=== PATIENT | male | born 1950 | race Caucasian/White ===

== ENCOUNTER → 2018-06-20 | Outpatient (CLI) | payer OTHER ==
[~2018-06-20] VITALS: Ht 177.8 cm; Wt 88.5 kg
[~2018-06-20] MED LIST: ASPIRIN325 PO; CARVEDILOL12.5 MG PO; CELEBREX 200 M200 M1 PO; HUMALOG100 UNIT/1 SQ; LANTUS SUBQ; LIPITOR 20 MG T20 M1 PO; LOSARTAN-HCTZ1 EAC1 PO; PREVACID15 MG PO; PROTONIX 20 MG20 M1 PO; VALIUM5 MG PO; ZOCOR 10 MG TAB10 MG PO; ZOFRAN ODT4 MG PO
--- NOTE | ~2018-06-20 | OD ---
[facility] [place] [address] DELIVERY NOTE Name: TERE ARREGUIN JR Room #: REG [facility].#: [id number] Admission: 06/20/18 ������������������ Attend Phys: Ray Anaya MD Discharge: ������������������ Date of : 48 Report #: [id number] THIS REPORT FOR: //name// CC: Valerio Feldman MD [facility] Ray Anaya DATE OF SERVICE: 06/20/2018 CHIEF COMPLAINT: Low back pain. HISTORY OF PRESENT ILLNESS: The patient is a pleasant 67-year-old gentleman who is here today at the request of Dr. Valerio Marquis to discuss chronic back pain. He has had longstanding pain, but this current episode has been dated back to 07/2017. He says around that time, he began experiencing constant pain in his low back, which has been persistent. He then experienced a sharp pain that radiates through his hips and down into his calves. It is worse with bending, walking, twisting and turning. It is improved with sitting. As a result of this, he has become more and more debilitated and more sedentary. He scores his daily pain as an 8/10. He was seen by Dr. Evens Shelton. He received medial branch nerve block, followed by radiofrequency. These did not provide lasting relief and pain, in fact, was about the same at the conclusion of the laborious procedure. His pain now presents a bit more in a radicular type fashion with radiation down into the posterior aspect of legs. He does not exercise regularly. He has gained some weight. 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 He spends a lot of his time sitting, bending over table, working on his daily tasks. MEDICATIONS: Pantoprazole, losartan, Humalog, Lantus, atorvastatin, diazepam. He is followed by both Cardiology, Dr. Feldman and Dr. Marquis and treated for hypertension. He is on no blood thinners. ALLERGIES: HE REPORTS AN ALLERGY TO METHYLPREDNISOLONE, although we did not explore its reaction. I doubt this to be an allergy. SOCIAL HISTORY: He is independent in his day-to-day activities. He is . He is able to work outside of the home, function reasonably well at work, has not taken time off of work. He denies use of tobacco, denies use of alcohol, does not do much in the way of physical exercise or activity. REVIEW OF SYSTEMS: Positive for weight gain, fatigue, visual issues. He wears glasses and has a history of cataracts. He has dyspnea on exertion and shortness of breath. He reports cardiac issues for which he follows with [address] [address] DELIVERY NOTE Name: TERE ARREGUIN Cuca [facility] [id number] Admission: 06/20/18 ������������������ Attend Phys: Ray Anaya MD Discharge: ������������������ Date of : 48 Report #: [id number] [place]. Gastrointestinal is positive for constipation, abdominal pain. He reports some incontinence, dribbling and nocturia. He describes slight tremor and some generalized nervousness. It should be noted that his review of systems self-reported was over 50% positive, so he is focused on these physical issues. PHYSICAL EXAMINATION: GENERAL: He is pleasant, soft spoken. VITAL SIGNS: Blood pressure is 141/76, heart rate 69, respirations 16, O2 sat 98. BMI is 28.0. MUSCULOSKELETAL: Moves easily from a sitting to standing position. His gait is slow and steady. He is not a fall risk. He is able to bend forward at the waist, twist, turn and do rotational movements without significant lower back pain. Straight leg raising is modestly positive with discomfort suggesting either a mild radicular component into the L5-S1 distribution or hamstring tightness. Deep tendon reflexes are diminished at knees and ankles, 1/4. Sensation is intact. There is no focal weakness. CARDIAC: Regular rhythm without murmur. PULMONARY: Respiratory rate is regular. There is no wheezing or respiratory difficulty. ABDOMEN: Soft. IMPRESSION: 1. Low back pain with mild radiation through the hips and legs, which may be radicular in nature L5-S1 distribution. 2. Debility. 3. Hypertension. 4. Insulin-dependent diabetes. RECOMMENDATION: Most important thing here is to try and get him moving more. I have referred in the [facility] for one visit per week for 6 weeks with the intent to establish regular program of exercise that will be sustained to help manage his lumbago and spondylitic low back pain. I would not repeat radiofrequency given his failure. He may benefit from an epidural steroid injection. He is not on any anti-inflammatory drug. I have started him on Celebrex 200 mg once daily. He will watch his blood pressure closely as this may elevate his blood pressure. He has no other contraindications. We talked about GI, renal and cardiac side effects and appropriate monitoring and management. Followup visit for possible epidural injection. I will be glad to see him back in the Pain Clinic in 1-2 months after he has completed his therapy. Epidural [facility] [address] [place] [address] DELIVERY NOTE Name: TERE ARREGUIN Room #: REG [facility] Richardson#: [id number] Admission: 06/20/18 ������������������ Attend Phys: Ray Anaya MD Discharge: ������������������ Date of : 48 Report #: [id number] injection may help motivate for therapy if he receives some relief even temporary. ��������������������������������������������� ���������������������������������������� By: ��������������������������������������������� [id number] Ray Anaya MD /nt
[2018-06-20 13:38] VITALS: BP 141/76
--- NOTE | 2018-06-20 14:03 | NUR ---
Pain Clinic Assessment: 1. History of Osteoarthritis: History of Rheumatoid Arthritis: 2. Height: 5 ft. 10 in. 177.8 cm. Weight: 195.0 lb. oz. 88.452 kg. Patient's BMI: 28.0 3. Vital Signs: BP: 141/76 Pulse: 69 Resp: 16 Temp: 02 Sat: 98 ECG Mon: 4. Pain Intensity: 9 5. Fall Risk: Dizziness: N Needs help standing or walking: N Fallen in the last 3 months: N Fall risk comments: 6. Patient on Blood Thinner: None 7. History of Hypertension: Y 8. Opioid Therapy greater than 6 weeks: N Opiate Contract Signed: 9. Risk Assessment Tool Provided: LOW 10. Functional Assessment Tool: 11. Recreational Drug Use: Never Drug Type: Tobacco Use: Never Smoker Tobacco Type: Amount or Packs/day: How Many Years: Alcohol Use: No Frequency: Quant:
== END ==
LOC: PAIN 06:58
DX: G89.29 Other chronic pain (principal); M54.5 Low back pain; I10 Essential (primary) hypertension; E11.9 Type 2 diabetes mellitus without complications; R53.81 Other malaise; Z79.899 Other long term (current) drug therapy; Z88.8 Allergy status to other drugs, medicaments and biological substances; Z79.4 Long term (current) use of insulin

== ENCOUNTER → 2018-07-28 | Outpatient (CLI) | payer OTHER ==
[~2018-07-28] VITALS: Ht 177.8 cm; Wt 87.0 kg
[~2018-07-28] MED LIST changes: +ULTRAM 50MG TAB50 MG PO
--- NOTE | ~2018-07-28 | HPC ---
[facility] [place] [address] PAIN MANAGEMENT CONSULTATION Name: TERE ARREGUIN JR Room #: REG [facility].#: [id number] Admission: 07/28/18 ������������������ Attend Phys: Ray Anaya MD Discharge: ������������������ Date of : 48 Report #: [id number] THIS REPORT FOR: //name// CC: Valerio Anaya DATE OF SERVICE: 07/28/2018 Followup visit for low back pain with radiculopathy. The patient returns to pain clinic today with classic symptoms of radiculopathy. Pain across his low back radiating through the hips and legs. He was seen in consultation on 06/20/2018. We were unable to perform the injection on that date. We have received authorization to go forward with the injection. He has trial of Celebrex and found it to be modestly helpful. This has helped his low back, but not symptoms consistent with radiculopathy. PHYSICAL EXAMINATION: Blood pressure is 173/86, heart rate 59, respirations 16. He is 5 feet 10 inches, 191 pounds. BMI is 27.5. he moves easily from sitting to standing position, but his gait is antalgic. He has pain across his low back with flexion and extension and positive straight leg raising bilaterally. Pain follows the L5-S1 distribution with hamstring tightness. Deep tendon reflexes remain diminished 1+/4 bilaterally with no weakness or change in sensation. IMPRESSION: Low back pain with radiculopathy in the L5-S1 distribution. I reviewed the procedure of an epidural injection with him including potential benefits, risks and benefits. He would like to proceed. He was taken to fluoroscopic suite, placed prone, skin prepped with ChloraPrep. Skin anesthetized over the L4-L5 interspace. A 20-gauge Tuohy epidural needle advanced first attempt in the epidural space with loss of resistance technique. There was no blood nor CSF aspirated. A 1 mL of Omnipaque injected. Good spread of dye observed in the epidural space followed by 3 mL of 0.5% lidocaine mixed with 80 mg of triamcinolone. He tolerated the procedure well and was observed for 45 minutes and discharged. Follow up as needed. ��������������������������������������������� ���������������������������������������� By: ��������������������������������������������� 1828 0147 Ray Anaya MD /nt
[2018-07-28 11:04] VITALS: BP 173/86
--- NOTE | 2018-07-28 11:06 | NUR ---
Pain Clinic Assessment: 1. History of Osteoarthritis: History of Rheumatoid Arthritis: 2. Height: 5 ft. 10 in. 177.8 cm. Weight: 191.8 lb. oz. 87.000 kg. Patient's BMI: 27.5 3. Vital Signs: BP: 173/86 Pulse: 59 Resp: 16 Temp: 02 Sat: 100 ECG Mon: 4. Pain Intensity: 4-5 AT WORK, 10 MOVING 5. Fall Risk: Dizziness: N Needs help standing or walking: N Fallen in the last 3 months: N Fall risk comments: 6. Patient on Blood Thinner: None 7. History of Hypertension: Y 8. Opioid Therapy greater than 6 weeks: N Opiate Contract Signed: 9. Risk Assessment Tool Provided: LOW 10. Functional Assessment Tool: 11. Recreational Drug Use: Never Drug Type: Tobacco Use: Never Smoker Tobacco Type: Amount or Packs/day: How Many Years: Alcohol Use: No Frequency: Quant:
--- NOTE | 2018-07-28 11:06 | NUR ---
Document wound assessment on appropriate Wound Pressure, Monitor intervention!
== END | disposition home or self-care (01) ==
LOC: PAIN 06:47
DX: M54.16 Radiculopathy, lumbar region (principal); G89.29 Other chronic pain; I63.9 Cerebral infarction, unspecified; I10 Essential (primary) hypertension; E11.9 Type 2 diabetes mellitus without complications; Z79.899 Other long term (current) drug therapy; Z79.4 Long term (current) use of insulin; Z88.8 Allergy status to other drugs, medicaments and biological substances

== ENCOUNTER 2018-10-02 13:32 | Emergency (ER) | payer OTHER ==
[~2018-10-02] VITALS: Ht 177.8 cm; Wt 82.1 kg
[~2018-10-02 13:32] MED LIST changes: +BENTYL 20 MG TA20 M1 PO; +PHENERGAN 25 MG25 M1 PO
[2018-10-02 13:59] LABS: BASOPHILS 0.2 % (0.0-2.0); HEMATOCRIT 40.6 % (42.0-52.0); HEMOGLOBIN 14.4 gm/dL (14.0-18.0); LYMPHOCYTES 9.2 % (24.0-44.0); MCH 29.9 pg (26.0-34.0); MCHC 35.4 g/dL (28.0-37.0); MCV 84.5 fL (80.0-100.0); MONOCYTES 5.3 % (1.0-8.0); PLATELET COUNT 231 thou/uL (150-400); POLYS 85.3 % (36.0-66.0); RBC 4.81 mil/uL (4.50-6.00); RDW 14.5 % (10.5-14.5); WBC 7.1 thou/uL (4.0-11.0)
[2018-10-02 14:07] LABS: CALCIUM 10.5 mg/dL (8.5-10.1); CREATININE 1.3 mg/dL (0.7-1.3); POTASSIUM 3.2 mmol/L (3.5-5.1)
[2018-10-02 14:13] LABS: ALBUMIN 4.5 g/dL (3.4-5.0); TOTAL BILIRUBIN 1.3 mg/dL (<0.1-1.0); TOTAL PROTEIN 8.1 g/dL (6.4-8.2)
[2018-10-02] MEDS ORDERED: ONDANSETRON ODT8 MG PO (16:06)
[2018-10-02] MEDS ORDERED: REGLAN 5 MG TAB5 MG PO (16:06)
[2018-10-02 16:32] VITALS: BP 146/78
--- NOTE | 2018-10-04 17:09 | EKG ---
[place] [address] [place] [address] ELECTROCARDIOGRAM REPORT Name: ARREGUINTERE Thurman Room #: [facility] [id number] Admission: 10/02/18 Attend Phys: Discharge: 10/02/18 Date of : 48 Report #: [id number] THIS REPORT FOR: //name// [facility] ED Test Date: 2018-10-02 Test Time: 15:04:48 Pat Name: TERE ARREGUIN Department: Room: Gender: Cdl Program Coordinator: RIZWANA : 1950 Requested By: Kamran Nair Order Number: [id number] MD: Jorje Bateman Measurements Intervals [place] Rate: 72 P: 13 [place]: 156 QRS: -3 QRSD: 97 T: 132 QT: 348 QTc: 381 Interpretive Statements Sinus rhythm Atrial premature complex Nonspecific T abnormalities Compared to ECG 12/20/2015 10:30:59 Atrial premature complex(es) now present T-wave abnormality now present Electronically Signed On 10-04-2018 17:09:08 CDT by Jorje Bateman [email or web address] <ELECTRONICALLY SIGNED> By: Jorje Bateman MD, [facility] 10/04/18 1709 1504 1504 Jorje Bateman MD, [facility] /EPI
== END 2018-10-02 16:33 | disposition home or self-care (01) ==
LOC: ER 13:32
PROVIDERS: Emergency Medicine
DX: E87.6 Hypokalemia (principal); E11.9 Type 2 diabetes mellitus without complications; K59.00 Constipation, unspecified; R11.2 Nausea with vomiting, unspecified; Z88.8 Allergy status to other drugs, medicaments and biological substances; Z98.890 Other specified postprocedural states; Z79.4 Long term (current) use of insulin

== ENCOUNTER → 2018-10-03 | Outpatient (CLI) | payer OTHER ==
[~2018-10-03] MED LIST changes: +ONDANSETRON ODT8 MG PO; +REGLAN 5 MG TAB5 MG PO
== END ==
LOC: NUC 09:11
DX: R11.2 Nausea with vomiting, unspecified (principal)

== ENCOUNTER → 2018-10-27 | Outpatient (CLI) | payer OTHER ==
[~2018-10-27] VITALS: Ht 177.8 cm; Wt 81.2 kg
[~2018-10-27] MED LIST changes: +METOCLOPRAMIDE 55 M1 PO
--- NOTE | ~2018-10-27 | HPC ---
[facility] [address] [place] [address] PAIN MANAGEMENT CONSULTATION Name: TERE ARREGUIN JR [id number] Admission: 10/27/18 ������������������ Attend Phys: Ray Anaya MD Discharge: ������������������ Date of : 48 Report #: [id number] THIS REPORT FOR: //name// CC: Jeremy Anaya DATE OF SERVICE: 10/27/2018 Followup visit for low back pain with radiculopathy. The patient returns to pain clinic today in followup. He was last seen 3 months ago. He received an epidural injection at the level of L4-L5 and reports that he had substantial improvement following that injection for a period of 6-8 weeks. Pain has now gradually returned to a level of 6-7/10. He was hospitalized in August with nausea and vomiting. I reviewed his records. He had slight hyponatremia. It was thought that might be due to Celebrex, but he is ruled that out and has told me that he is hyponatremic chronically. Perhaps, it was due to tramadol. At any rate, the episode passed. He was discharged back home and has not recurred. He now has pain in his low back, worse with spinal flexion, increases pain and shoots it up into the mid back as well as into the leg. Mornings are the worst when he first gets out of bed, but once he is out and moving, he seems to get along okay. He then has increases in pain if he is active in his yard or has lots of walking to do. When he sits down, he seems to improve. He has type 1 diabetes and there was some consideration for gastroparesis as his primary issue related to his Emergency Room visit. He was started on metoclopramide. He continues on Aleve in place of Celebrex. We discussed the NSAID side effects. PQRS: 1. Positive for osteoarthritis of the spine, particularly with spondylosis. 2. BMI is 25.7. 3. Blood pressure 129/73, heart rate 67, respirations 14, O2 sat 97. 4. Pain intensity 7-8/10. 5. He has not fallen in the last 3 months and is not considered a fall risk. 6. Denies use of blood thinners. 7. He has a history of hypertension, under treatment by primary care physician. All medications were reviewed and reconciled today with the patient correcting some of our records. 8. No opioid agreement at this time. 9. He has completed an ORT and is considered at low risk for addiction. 10. Functional assessment score is 51/70, a fairly high number, suggesting that pain impacts his day-to-day activities quite dramatically. 11. He denies use of tobacco, but does drink alcohol on special occasions. [facility] [address] [place] [address] PAIN MANAGEMENT CONSULTATION Name: TERE ARREGUIN Room #: REG CL Debra#: [id number] Admission: 10/27/18 ������������������ Attend Phys: Ray Anaya MD Discharge: ������������������ Date of : 48 Report #: [id number] PHYSICAL EXAMINATION: VITAL SIGNS: As noted above. CHEST: Clear. CARDIAC: Rhythm is regular. BACK: Spine reveals tenderness across the lumbosacral segment with positive straight leg raising with shooting pain bilaterally into lower extremities. Sensation is normal. There is no loss of strength noted in any of the muscle groups. IMPRESSION: Low back pain, favorable response to epidural injection in the past. RECOMMENDATION: Repeat epidural injection once again in the same location L4-L5 under fluoroscopic guidance. DESCRIPTION OF PROCEDURE: He was taken to fluoroscopic suite for the procedure, placed prone, skin prepped with ChloraPrep. Skin anesthetized over the L4-L5 interspace. A 20-gauge Tuohy epidural needle advanced in the epidural space with loss of resistance technique. There was no blood or CSF aspirated. A 1 mL of Omnipaque injected. Good spread of dye observed in the epidural space, was followed by 3 mL of 0.5% lidocaine mixed with 80 mg of triamcinolone. He tolerated the procedure well and was observed for 45 minutes and discharged. Followup visit planned as needed. ��������������������������������������������� ���������������������������������������� By: ��������������������������������������������� 1701 0136 Ray Anaya MD /renetta
[2018-10-27 11:25] VITALS: BP 129/73
--- NOTE | 2018-10-27 11:32 | NUR ---
Pain Clinic Assessment: 1. History of Osteoarthritis: SPINE History of Rheumatoid Arthritis: NO 2. Height: 5 ft. 10 in. 177.8 cm. Weight: 179.0 lb. oz. 81.194 kg. Patient's BMI: 25.7 3. Vital Signs: BP: 129/73 Pulse: 67 Resp: 14 Temp: 02 Sat: 97 ECG Mon: 4. Pain Intensity: 7-8 5. Fall Risk: Dizziness: N Needs help standing or walking: N Fallen in the last 3 months: N Fall risk comments: 6. Patient on Blood Thinner: None 7. History of Hypertension: Y 8. Opioid Therapy greater than 6 weeks: N Opiate Contract Signed: 9. Risk Assessment Tool Provided: LOW 10. Functional Assessment Tool: 11. Recreational Drug Use: Never Drug Type: Tobacco Use: Never Smoker Tobacco Type: Amount or Packs/day: How Many Years: Alcohol Use: Yes Frequency: Special Occasions Quant:
== END | disposition home or self-care (01) ==
LOC: PAIN 06:45
DX: M54.16 Radiculopathy, lumbar region (principal); G89.29 Other chronic pain; I10 Essential (primary) hypertension; E10.9 Type 1 diabetes mellitus without complications; Z86.73 Personal history of transient ischemic attack (TIA), and cerebral infarction without residual deficits; Z88.8 Allergy status to other drugs, medicaments and biological substances; Z79.899 Other long term (current) drug therapy; Z79.4 Long term (current) use of insulin; Z98.890 Other specified postprocedural states

== ENCOUNTER → 2019-03-20 | Outpatient (CLI) | payer OTHER ==
[~2019-03-20] VITALS: Ht 177.8 cm; Wt 86.2 kg
[~2019-03-20] MED LIST changes: +APAP650 PO; +ZETIA10 MG PO
[2019-03-20 09:59] VITALS: BP 139/69
--- NOTE | 2019-03-20 10:28 | NUR ---
Pain Clinic Assessment: 1. History of Osteoarthritis: SPINE History of Rheumatoid Arthritis: NO 2. Height: 5 ft. 10 in. 177.8 cm. Weight: 190.0 lb. oz. 86.184 kg. Patient's BMI: 27.3 3. Vital Signs: BP: 139/69 Pulse: 60 Resp: 16 Temp: 02 Sat: 99 ECG Mon: 4. Pain Intensity: 3 NOW, 9 WITH MOVEMENT 5. Fall Risk: Dizziness: N Needs help standing or walking: N Fallen in the last 3 months: N Fall risk comments: 6. Patient on Blood Thinner: None 7. History of Hypertension: Y 8. Opioid Therapy greater than 6 weeks: N Opiate Contract Signed: 9. Risk Assessment Tool Provided: LOW 10. Functional Assessment Tool: 11. Recreational Drug Use: Never Drug Type: Tobacco Use: Never Smoker Tobacco Type: Amount or Packs/day: How Many Years: Alcohol Use: Yes Frequency: Special Occasions Quant:
--- NOTE | 2019-03-20 10:28 | NUR ---
Document wound assessment on appropriate Wound Pressure, Monitor intervention!
--- NOTE | 2019-03-22 10:10 | HPC ---
[facility] [address] [address] PAIN MANAGEMENT CONSULTATION Name: TERE ARREGUIN JR Room #: REG [facility].#: [id number] Admission: 03/20/19 Attend Phys: Hayley Aviles Discharge: Date of : 48 Report #: [id number] THIS REPORT FOR: cc: Jeremy Marquis MD, Christopher B. MD Hocker,Hayley FLORES ~ THIS REPORT FOR: //name// DATE OF SERVICE: 03/20/2019 CHIEF COMPLAINT: Low back pain with radiculopathy. HISTORY OF PRESENT ILLNESS: This is a very pleasant 68-year-old gentleman who returns to the pain clinic today with ongoing low back pain that does radiate down his left hip and buttock, down to the anterior portion of his thigh into his calf. He does report that he has numbness and tingling in his left foot as well. He is denying any symptoms on his right side today. He rates his pain at 3/10, but can be as high as 9/10 with prolonged activity and bending. He is wondering if he should have another epidural steroid injection or what other treatment options we have for him today. The patient does report he has had lumbar epidural steroid injections from Dr. Ray Anaya in the past. He found them to be beneficial, though short-lived in helping reduce his pain. He has used tramadol in the past as well, but has been out of that medicine for quite some time. He is currently taking Tylenol Arthritis 650 mg tablets, up to 8 tablets a day. ALLERGIES: JANUVIA AND METHYLPREDNISONE. CURRENT MEDICATIONS: Tylenol Arthritis 650 mg tablets, Zetia, Reglan, Valium, atorvastatin, Lantus, Humalog, and Hyzaar. PQRS: 1. He is positive for osteoarthritis in his spine for spondylosis. Denies any rheumatoid arthritis. 2. Height is 5 feet 10 inches, weight is 190 and BMI is 27. 3. Vital signs 139/69, pulse is 60, respirations 16, oxygen sat is 99. 4. Pain score is 9/10. 5. Denies dizziness, does not need help walking or standing, has not fallen in the last 3 months. 6. The patient is not on any blood thinners, but does take medicine for hypertension. Denies any opioid use in the last 6 weeks. 7. Risk assessment tool is low. Functional assessment is 51/70. 8. Recreational drug use, he denies. He does not smoke and does not drink alcohol. [address] [address] PAIN MANAGEMENT CONSULTATION Name: TERE ARREGUIN Room #: REG [facility]#: [id number] Admission: 03/20/19 Attend Phys: Hayley Aviles Discharge: Date of : 48 Report #: [id number] According to the prescription monitoring system, he has not filled any opioids in the last few months. PHYSICAL EXAMINATION: GENERAL: This is alert and orientated 68-year-old gentleman who appears his stated age, placing his current pain score at 3/10. HEENT: Normocephalic, atraumatic. Extraocular eye muscles are intact. Mucous membranes are moist. MUSCULOSKELETAL: He moves easily from the sitting to standing position. He has a slow antalgic gait. Pain is increased with rotational movements. He has tenderness in his lumbosacral segment that radiates down his left leg following the L4-L5 dermatomal distribution. His lower extremity strength is equal and 5/5 with good sensation. IMPRESSION: 1. Low back pain with lumbar radiculopathy following the L4-L5 and L5-S1 dermatomal distribution. 2. Hypertension. 3. Insulin-dependent diabetic. 4. Diabetic neuropathy. PLAN: 1. We discussed treatment options with the patient today. I believe the patient may be a candidate for a left transforaminal epidural steroid injection. The patient is not experiencing currently any pain on his right leg. The patient has had lumbar epidurals in the past that have been beneficial, though short lived. We will make an appointment with Dr. Anaya to evaluate the patient and proceed with an injection. 2. I explained to the patient that he is taking too much Tylenol. The maximum amount he is allowed of Tylenol Arthritis is 4 tablets a day. We discussed liver issues as the main side effect of taking too much Tylenol. 3. We will prescribe tramadol 50 mg, enabling the patient to take 2 tablets a day if he needs to for pain. He has taken this medication in the past and found it beneficial. We will have Dr. Anaya electronically send this medication to his pharmacy. 4. The patient has some ongoing neuropathic issues in his legs and feet. He is a diabetic, so may be related to his diabetic neuropathy versus his radicular symptoms. I explained to the patient that a small dose of gabapentin may be beneficial in the future if his symptoms are not resolved with his lumbar epidural steroid injection. [facility] [address] [place] [address] PAIN MANAGEMENT CONSULTATION Name: TERE ARREGUIN [facility]: [facility] [id number] Admission: 03/20/19 Attend Phys: Hayley Aviles Discharge: Date of : 48 Report #: [id number] 5. Appointment made for an injection with Dr. Anaya who collaborated care today. <ELECTRONICALLY SIGNED> By: Hayley Aviles 03/22/19 1010 1136 0137 Hayley Aviles /nt
== END ==
LOC: PAIN 06:53
DX: M54.16 Radiculopathy, lumbar region (principal); I10 Essential (primary) hypertension; E10.40 Type 1 diabetes mellitus with diabetic neuropathy, unspecified; Z88.5 Allergy status to narcotic agent; Z88.8 Allergy status to other drugs, medicaments and biological substances

== ENCOUNTER → 2019-04-06 | Outpatient (CLI) | payer OTHER ==
[~2019-04-06] VITALS: Ht 177.8 cm; Wt 85.5 kg
[2019-04-06 14:42] VITALS: BP 129/81
--- NOTE | 2019-04-06 14:53 | NUR ---
Pain Clinic Assessment: 1. History of Osteoarthritis: SPINE History of Rheumatoid Arthritis: NO 2. Height: 5 ft. 10 in. 177.8 cm. Weight: 188.4 lb. oz. 85.458 kg. Patient's BMI: 27.0 3. Vital Signs: BP: 129/81 Pulse: 73 Resp: 14 Temp: 02 Sat: 100 ECG Mon: 4. Pain Intensity: 3-4 5. Fall Risk: Dizziness: N Needs help standing or walking: N Fallen in the last 3 months: N Fall risk comments: 6. Patient on Blood Thinner: None 7. History of Hypertension: Y 8. Opioid Therapy greater than 6 weeks: N Opiate Contract Signed: 9. Risk Assessment Tool Provided: LOW 10. Functional Assessment Tool: 11. Recreational Drug Use: Never Drug Type: Tobacco Use: Never Smoker Tobacco Type: Amount or Packs/day: How Many Years: Alcohol Use: Yes Frequency: Quant:
--- NOTE | 2019-04-13 14:31 | HPC ---
[facility] [place] [address] PAIN MANAGEMENT CONSULTATION Name: TERE ARREGUIN JR Room #: REG [facility].#: [id number] Admission: 04/06/19 Attend Phys: Ray Anaya MD Discharge: Date of : 48 Report #: [id number] THIS REPORT FOR: cc: Jeremy Marquis MD,Jeremy Anaya,Ray Hankins MD ~ THIS REPORT FOR: //name// CC: Valerio Anaya DATE OF SERVICE: 04/06/2019 Followup visit for left-sided low back pain with radicular symptoms. The patient is a pleasant gentleman who is seen on several occasions for low back pain with radiculopathy. He presents today with pain that is exclusively on the left. It radiates down in L4-L5 distribution into his leg. He has had successful treatment in the past with epidural injections and was hopeful that we can provide relief for him once again. The pain is 9/10 with sitting when he first gets up. He has been using tramadol and this is provided some relief; his last prescription was on 03/20/2019, still has some remaining in that prescription. He understands the importance of remaining active in physical exercise. X-rays available are plain films from about 9 months ago that show intervertebral disks placed and then endplate changes as well as facet osteoarthritis. We do not have a current MRI. PQRS: Positive for the spondylosis noted above. Blood pressure is 129/81, heart rate 73, respirations 14 and his BMI is 27. He scores his pain today is a 3-4, but can be as high as a 9-10 when he is first up. It settles down when he is walking. He has not fallen. He is on no blood thinners, but he has a history of hypertension treated by Dr. Marquis. Medications reviewed and reconciled. He is not on an opioid agreement currently, but has completed an opioid risk tool suggesting low risk for addiction. His functional assessment score is 51. There is quite a bit of impact of his pain on day-to-day activities therefore. He does not smoke and drinks alcohol in social settings, not to excess, by report. IMPRESSION: Lumbar radiculopathy, left L4-L5 distribution. RECOMMENDATIONS: Given his unilateral symptoms, I think an L4-L5 transforaminal epidural injection is the best approach. I described the procedure, [place] [address] PAIN MANAGEMENT CONSULTATION Name: TERE ARREGUIN JR Room #: REG [facility] Debra#: [id number] Admission: 04/06/19 Attend Phys: Ray Anaya MD Discharge: Date of : 48 Report #: [id number] benefits. He is anxious to proceed. PC: He was taken to fluoroscopic suite for the treatment. He was placed prone, and the skin was prepped with ChloraPrep. Skin was anesthetized over the L4-L5 interspace. Using triplanar fluoroscopic views, a 20-gauge Tuohy epidural needle was advanced first attempt in the neural foramen. There was no blood or CSF aspirated. I injected 0.25 mL of Omnipaque and this was enough to demonstrate an excellent epidurogram. Medication spreading along the L4 nerve root in the neural foramen. It was followed then by 3 mL of 0.5% lidocaine mixed with 40 mg of triamcinolone. Pain score dropped fairly dramatically at discharge. Pain was 1 as he ambulated from the clinic. Followup visit planned as needed. <ELECTRONICALLY SIGNED> By: Ray Anaya MD 04/13/19 1431 1731 [id number] Ray Anaya MD /nt
== END | disposition home or self-care (01) ==
LOC: PAIN 06:55
DX: M54.16 Radiculopathy, lumbar region (principal); G89.29 Other chronic pain; I10 Essential (primary) hypertension; Z98.890 Other specified postprocedural states; Z79.899 Other long term (current) drug therapy; Z86.73 Personal history of transient ischemic attack (TIA), and cerebral infarction without residual deficits; Z88.8 Allergy status to other drugs, medicaments and biological substances

== ENCOUNTER → 2019-07-12 | Outpatient (CLI) | payer OTHER | LOC: SJCVCIMAG 08:40 | DX: I25.10 Atherosclerotic heart disease of native coronary artery without angina pectoris (principal); E11.9 Type 2 diabetes mellitus without complications; I10 Essential (primary) hypertension; I65.23 Occlusion and stenosis of bilateral carotid arteries; K31.84 Gastroparesis; E78.00 Pure hypercholesterolemia, unspecified; Z79.4 Long term (current) use of insulin; Z79.899 Other long term (current) drug therapy ==

== ENCOUNTER → 2019-07-24 | Outpatient (CLI) | payer OTHER ==
[~2019-07-24] VITALS: Ht 177.8 cm; Wt 81.3 kg
[2019-07-24 14:50] VITALS: BP 134/85
--- NOTE | 2019-07-24 15:03 | NUR ---
Pain Clinic Assessment: 1. History of Osteoarthritis: SPINE History of Rheumatoid Arthritis: NO 2. Height: 5 ft. 10 in. 177.8 cm. Weight: 179.2 lb. oz. 81.285 kg. Patient's BMI: 25.7 3. Vital Signs: BP: 134/85 Pulse: 73 Resp: 16 Temp: 02 Sat: 98 ECG Mon: 4. Pain Intensity: 5 5. Fall Risk: Dizziness: N Needs help standing or walking: N Fallen in the last 3 months: N Fall risk comments: 6. Patient on Blood Thinner: None 7. History of Hypertension: Y 8. Opioid Therapy greater than 6 weeks: N Opiate Contract Signed: 9. Risk Assessment Tool Provided: LOW 10. Functional Assessment Tool: 49/ 11. Recreational Drug Use: Never Drug Type: Tobacco Use: Never Smoker Tobacco Type: Amount or Packs/day: How Many Years: Alcohol Use: Yes Frequency: Quant:
--- NOTE | 2019-08-03 12:16 | HPC ---
[facility] Tamy Rodriguez [employer] [place] [address] PAIN MANAGEMENT CONSULTATION Name: TERE ARREGUIN JR Room #: REG [facility].#: [id number] Admission: 07/24/19 Attend Phys: Ray Anaya MD Discharge: Date of : 48 Report #: [id number] THIS REPORT FOR: cc: Jeremy Marquis MD,Jeremy Anaya,Ray Hankins MD ~ CC: Valerio Anaya DATE OF SERVICE: 07/24/2019 Followup visit for lumbar radiculopathy on the left. The patient is here in March and received really nice response from the left sided epidural injections at L4-L5. He has returned to the clinic today to repeat the injection. Reviewed his last injection and spread of dye, which was a very favorable along the L4-L5 level and into the epidural space extending along the lateral recess. We will try to target the same area again today. PQRS review is positive for spinal arthritis and spondylosis. No other joints are noted today. BMI is 25.7. Vital signs: Blood pressure 134/85, heart rate 73, respirations 16, O2 sat 98, pain intensity 5/10. He is not a fall risk. He is on no blood thinners, but he has treatment for hypertension. We reviewed all his medications as are noted and listed here on the electronic medical record. His risk assessment tool score is low. He does not take medications stronger than tramadol and tries to take no more than 1 per day. This functional assessment score is 49, which will be fine fairly high. This suggests that there is significant impact of his pain on his day-to-day activities at multiple levels. We reviewed these together. Does not smoke. Continues to drink alcohol in the social setting. IMPRESSION: Lumbar radiculopathy, left L4-L5 distribution. RECOMMENDATION: I will repeat the left transforaminal epidural injection. Encouraged continued exercise. DESCRIPTION OF PROCEDURE: After informed consent, he was taken to the fluoroscopic suite, placed prone, skin prepped with ChloraPrep. Skin was anesthetized over the L4-L5 neural foramen. Using triplanar fluoroscopic views, advanced the needle into the epidural space. A 1 mL of Omnipaque was injected and excellent epidurogram was achieved through the neural foramen was followed then by 3 mL of 0.5% lidocaine mixed with 80 mg of triamcinolone. He tolerated the procedure well and was observed for 45 [place] [address] PAIN MANAGEMENT CONSULTATION Name: TERE ARREGUIN Room #: REG [facility]#: [id number] Admission: 07/24/19 Attend Phys: Ray Anaya MD Discharge: Date of : 48 Report #: [id number] Followup visit is planned as needed. <ELECTRONICALLY SIGNED> By: Ray Anaya MD 08/03/19 1216 1658 2240 MD ken Hernandez
== END | disposition home or self-care (01) ==
LOC: PAIN 07:11
PROVIDERS: ATTEND Anesthesiology Pain Medicine
DX: M54.16 Radiculopathy, lumbar region (principal); G89.29 Other chronic pain; I10 Essential (primary) hypertension; Z98.890 Other specified postprocedural states; Z79.899 Other long term (current) drug therapy; Z88.8 Allergy status to other drugs, medicaments and biological substances

== ENCOUNTER → 2019-10-26 | Outpatient (CLI) | payer OTHER ==
[~2019-10-26] VITALS: Ht 177.8 cm; Wt 79.3 kg
[~2019-10-26] MED LIST changes: +PROTONIX40 M2 PO
--- NOTE | ~2019-10-26 | HPC ---
[facility] Tamy [place] [address] PAIN MANAGEMENT CONSULTATION Name: TERE ARREGUIN JR Room #: REG [facility].#: [id number] Admission: 10/26/19 Attend Phys: Ray Anaya MD Discharge: Date of : 49 Report #: [id number] THIS REPORT FOR: cc: Jeremy Marquis MD,Jeremy Anaya,Ray Hankins MD ~ CC: Valerio Anaya DATE OF SERVICE: 10/26/2019 Followup visit for lumbar radiculopathy. The patient is a pleasant 69-year-old gentleman who I have seen in the past for lumbar radiculopathy on the left. His last injection was a transforaminal injection and did not provide as much relief as the midline injection had provided in the past. We reviewed that injection today. He is now having pain in the level of 6-7/10 and would like to repeat the injection. I have agreed to also provide him tramadol, which he uses one to two tablets daily with good relief. He denied side effects. PQRS REVIEW: Positive for lumbar spondylosis. BMI is 25.1, blood pressure 155/83, heart rate 67, respirations 14, O2 sat is 100, pain intensity 6-7/10. He has not fallen in the last 3 months. He is on no blood thinners, no history of hypertension. His risk assessment tool for addiction is low. He does not smoke. Drinks alcohol only on special occasions. PHYSICAL EXAMINATION: GENERAL: He is pleasant, soft spoken gentleman. Moves independently from sitting to standing position both although his gait is mildly antalgic. VITAL SIGNS: As noted above. GENERAL: He has tenderness in his left hip and it radiates into the L4-L5 distribution. X-ray evidence is reviewed showing moderate facet osteoarthritis at L4-L5 on the plain films and entered vertebral disk space degenerative changes. MRI is not available. IMPRESSION: Lumbar radiculopathy. RECOMMENDATION: Epidural steroid injection, left paramedian L4-L5 under fluoroscopic guidance. DESCRIPTION OF PROCEDURE: After informed consent, he was taken to the fluoroscopic suite, placed prone, skin prepped with ChloraPrep. Skin [address] [address] PAIN MANAGEMENT CONSULTATION Name: KALLIETERE Cuca Room #: REG [facility].#: [id number] Admission: 10/26/19 Attend Phys: Ray Anaya MD Discharge: Date of : 49 Report #: [id number] anesthetized over the L4-L5 interspace. A 20-gauge Tuohy epidural needle advanced in first attempt in the epidural space with loss of resistance technique. There was no blood or CSF aspirated. A 1 mL of Omnipaque injected. Good spread of dye observed into the epidural space followed by 3 mL of 0.5% lidocaine mixed with 80 mg triamcinolone. He tolerated the procedure well and was observed for 45 minutes and discharged. Followup visit planned in the pain clinic as needed. By: 1728 21 Ray Anaya MD /nt
--- NOTE | ~2019-10-26 | HPC ---
[facility] [place] [address] PAIN MANAGEMENT CONSULTATION Name: TERE ARREGUIN JR Room #: REG [facility].#: [id number] Admission: 10/26/19 Attend Phys: Ray Anaya MD Discharge: Date of : 49 Report #: [id number] THIS REPORT FOR: cc: Jeremy Marquis MD,Jeremy Anaya,Ray Hankins MD ~ CC: Jeremy Anaya DATE OF SERVICE: 10/26/2019 Followup visit for low back pain with radicular features into the left hip and left leg in L4-L5 distribution. The patient returns to the pain clinic today for repeat lumbar epidural injection. He has had good relief with midline injections and one transforaminal. The last injection performed on 07/24/2019 with a left lumbar transforaminal injection, which unfortunately did not provide as much pain relief as prior injections. We reviewed the injection and it looks like we had a nice epidural spread. Sometimes one injection may be preferred and I think after our discussion today, he has had his best relief with midline injections. Pain is now 6-7/10. It is worse getting up and down out of bed and standing. He has really good range of motion of the spine, but it is uncomfortable for him. PQRS review is positive for mostly just low back spondylosis, but no other arthritic complaints. His BMI is 25 and his blood pressure is 125/83, heart rate 67, respirations 14, O2 sat 100% on room air. His pain intensity today is 7/10. He has a bit of dizziness on occasion when he first gets up and down from a chair. He has a history of hypertension and is under treatment. All medications were reviewed. He is also on insulin for diabetes. I do provide him with tramadol. The only opioid medication that he uses and he takes it sparingly, no more than 1-2 tablets a day, carefully safeguards the medication. I have agreed to provide that for him based upon an opioid risk tool assessment is low. He denies use of tobacco, drinks alcohol occasionally in social settings. IMPRESSION: Low back pain with radiculopathy on the left. RECOMMENDATION: Repeat midline epidural injection, left paramedian L4-L5. DESCRIPTION OF PROCEDURE: After informed consent, he was taken to the fluoroscopic suite, placed prone, skin prepped with ChloraPrep. Skin anesthetized over the L4-L5 interspace to the left of midline. Then, 1 mL of Omnipaque was injected and good spread of dye observed into the epidural space. [address] [address] PAIN MANAGEMENT CONSULTATION Name: TERE ARREGUIN [facility] [id number] Admission: 10/26/19 Attend Phys: Ray Anaya MD Discharge: Date of : 49 Report #: [id number] It was followed by 3 mL of 0.5% lidocaine mixed with 80 mg of triamcinolone. He tolerated the procedure well and was observed for 45 minutes and discharged. Follow up as needed. By: 1447 1759 Ray Anaya MD /nt
[2019-10-26 13:35] VITALS: BP 155/83
--- NOTE | 2019-10-26 13:52 | NUR ---
Pain Clinic Assessment: 1. History of Osteoarthritis: LOW BACK History of Rheumatoid Arthritis: NO 2. Height: 5 ft. 10 in. 177.8 cm. Weight: 174.8 lb. oz. 79.289 kg. Patient's BMI: 25.1 3. Vital Signs: BP: 155/83 Pulse: 67 Resp: 14 Temp: 02 Sat: 100 ECG Mon: 4. Pain Intensity: 6-7 5. Fall Risk: Dizziness: Y Needs help standing or walking: N Fallen in the last 3 months: N Fall risk comments: 6. Patient on Blood Thinner: None 7. History of Hypertension: Y 8. Opioid Therapy greater than 6 weeks: N Opiate Contract Signed: 9. Risk Assessment Tool Provided: ALVINO 10. Functional Assessment Tool: 49/70 11. Recreational Drug Use: Never Drug Type: Tobacco Use: Never Smoker Tobacco Type: Amount or Packs/day: How Many Years: Alcohol Use: Yes Frequency: Special Occasions Quant: 1-2
== END ==
LOC: PAIN 06:46
PROVIDERS: ATTEND Anesthesiology Pain Medicine
DX: M54.16 Radiculopathy, lumbar region (principal); E11.9 Type 2 diabetes mellitus without complications; Z79.899 Other long term (current) drug therapy; Z88.8 Allergy status to other drugs, medicaments and biological substances

== ENCOUNTER → 2020-02-02 | Outpatient (CLI) | payer OTHER ==
[~2020-02-02] VITALS: Ht 177.8 cm; Wt 76.7 kg
[2020-02-02 09:16] VITALS: BP 128/69
--- NOTE | 2020-02-02 09:22 | NUR ---
Pain Clinic Assessment: 1. History of Osteoarthritis: LOW BACK History of Rheumatoid Arthritis: NO 2. Height: 5 ft. 10 in. 177.8 cm. Weight: 169.0 lb. oz. 76.658 kg. Patient's BMI: 24.2 3. Vital Signs: BP: 128/69 Pulse: 82 Resp: 16 Temp: 02 Sat: 97 ECG Mon: 4. Pain Intensity: 5 5. Fall Risk: Dizziness: N Needs help standing or walking: N Fallen in the last 3 months: N Fall risk comments: 6. Patient on Blood Thinner: None 7. History of Hypertension: Y 8. Opioid Therapy greater than 6 weeks: N Opiate Contract Signed: 9. Risk Assessment Tool Provided: LOW-0 10. Functional Assessment Tool: 49/70 11. Recreational Drug Use: Never Drug Type: Tobacco Use: Never Smoker Tobacco Type: Amount or Packs/day: How Many Years: Alcohol Use: Yes Frequency: Special Occasions Quant: 1-2 PER YEAR
== END | disposition home or self-care (01) ==
LOC: PAIN 01-31 13:09
PROVIDERS: ATTEND Anesthesiology Pain Medicine
DX: M54.16 Radiculopathy, lumbar region (principal); G89.29 Other chronic pain; I10 Essential (primary) hypertension; E11.40 Type 2 diabetes mellitus with diabetic neuropathy, unspecified; Z79.4 Long term (current) use of insulin; Z98.890 Other specified postprocedural states; Z79.899 Other long term (current) drug therapy; Z88.8 Allergy status to other drugs, medicaments and biological substances

== ENCOUNTER → 2020-03-25 | Outpatient (CLI) | payer OTHER | LOC: SJCVC 11:38 | PROVIDERS: ATTEND Internal Medicine Cardiovascular Disease | DX: I25.10 Atherosclerotic heart disease of native coronary artery without angina pectoris (principal); R94.31 Abnormal electrocardiogram [ECG] [EKG]; E78.00 Pure hypercholesterolemia, unspecified; I10 Essential (primary) hypertension; E78.5 Hyperlipidemia, unspecified; E11.43 Type 2 diabetes mellitus with diabetic autonomic (poly)neuropathy; K31.84 Gastroparesis; Z98.890 Other specified postprocedural states; Z79.4 Long term (current) use of insulin; Z79.899 Other long term (current) drug therapy; Z82.49 Family history of ischemic heart disease and other diseases of the circulatory system ==

== ENCOUNTER → 2020-04-29 | Outpatient (CLI) | payer OTHER ==
[~2020-04-29] VITALS: Ht 177.8 cm; Wt 77.1 kg
--- NOTE | 2020-04-29 14:58 | NUR ---
Pain Clinic Assessment: 1. History of Osteoarthritis: LOW BACK HANDS History of Rheumatoid Arthritis: NO 2. Height: ft. in. cm. Weight: lb. oz. kg. Patient's BMI: 3. Vital Signs: BP: Pulse: Resp: Temp: 02 Sat: ECG Mon: 4. Pain Intensity: 6 5. Fall Risk: Dizziness: N Needs help standing or walking: N Fallen in the last 3 months: N Fall risk comments: 6. Patient on Blood Thinner: None 7. History of Hypertension: Y 8. Opioid Therapy greater than 6 weeks: N Opiate Contract Signed: 9. Risk Assessment Tool Provided: LOW-0 10. Functional Assessment Tool: 49/70 11. Recreational Drug Use: Never Drug Type: Tobacco Use: Never Smoker Tobacco Type: Amount or Packs/day: How Many Years: Alcohol Use: Yes Frequency: Special Occasions Quant: VERY SELDOM
[2020-04-29 15:06] VITALS: BP 118/65
--- NOTE | 2020-04-29 15:06 | NUR ---
Pain Clinic Assessment: 1. History of Osteoarthritis: LOW BACK HANDS History of Rheumatoid Arthritis: NO 2. Height: 5 ft. 10 in. 177.8 cm. Weight: 170.0 lb. oz. 77.112 kg. Patient's BMI: 24.4 3. Vital Signs: BP: 118/65 Pulse: 76 Resp: 16 Temp: 02 Sat: 98 ECG Mon: 4. Pain Intensity: 6 5. Fall Risk: Dizziness: N Needs help standing or walking: N Fallen in the last 3 months: N Fall risk comments: 6. Patient on Blood Thinner: None 7. History of Hypertension: Y 8. Opioid Therapy greater than 6 weeks: N Opiate Contract Signed: 9. Risk Assessment Tool Provided: LOW-0 10. Functional Assessment Tool: 49/70 11. Recreational Drug Use: Never Drug Type: Tobacco Use: Never Smoker Tobacco Type: Amount or Packs/day: How Many Years: Alcohol Use: Yes Frequency: Special Occasions Quant: VERY SELDOM
== END ==
LOC: PAIN 10:53
PROVIDERS: ATTEND Anesthesiology Pain Medicine
DX: M43.16 Spondylolisthesis, lumbar region (principal); M54.16 Radiculopathy, lumbar region; M54.5 Low back pain; E11.9 Type 2 diabetes mellitus without complications; Z79.899 Other long term (current) drug therapy; Z79.4 Long term (current) use of insulin; Z88.8 Allergy status to other drugs, medicaments and biological substances

== ENCOUNTER 2020-05-19 11:40 | Inpatient (IN) | payer OTHER ==
[2020-05-19] VITALS (8 sets, daily range): BP systolic 130–154; BP diastolic 55–96
[~2020-05-19] VITALS: Ht 177.8 cm; Wt 69.9 kg
--- NOTE | ~2020-05-19 | HC ---
[facility] [place] [address] CONSULTATION Name: TERE ARREGUIN JR Room #: 245-P [facility] IN M.R.#: [id number] Admission: 05/19/20 Attend Phys: Guille Linda MD Discharge: Date of : 49 Report #: [id number] THIS REPORT FOR: cc: Jeremy Marquis MD, Christopher B. MD Al-Ivana,Socorro Carvajal MD ~ REASON FOR CONSULTATION: Hyponatremia. HISTORY OF PRESENT ILLNESS: A 69-year-old with past medical history of hypertension, maintained on a thiazide diuretic, he also carries a diagnosis of diabetes mellitus. He tells me that he was diagnosed to have gastroparesis and was prescribed Reglan. He had been evaluated by GI in the past and had a biopsy consistent with Rivas esophagus. 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 The patient was prescribed Reglan by his primary care physician a few days ago and he started to have significant side effects including tremor. He also had persistent nausea and vomiting and was brought to the Emergency Room to further evaluate. He was found to have severe hyponatremia. Sodium level on arrival was 112. He was maintained on a thiazide diuretic as mentioned above. I was consulted to manage his hyponatremia. He has no neurological symptoms. Specifically, no seizure activities. ALLERGIES: SITAGLIPTIN. MEDICATIONS: 1. Losartan, hydrochlorothiazide. 2. Atorvastatin. 3. Metoclopramide. 4. Pantoprazole. SOCIAL HISTORY: No drug, alcohol abuse. REVIEW OF SYSTEMS: GENERAL: No fever or chills, but significant for weakness. CARDIOVASCULAR: No chest pain or palpitation. PULMONARY: No cough or hemoptysis. GASTROINTESTINAL: As per the history of present illness. GENITOURINARY: No frequency, no urgency. MUSCULOSKELETAL: Occasional myalgias. NEUROLOGICAL: No headache, no dizziness, but significant weakness. No seizure activities. PAST SURGICAL HISTORY: 1. Bilateral facet joint injection. 2. Radiculopathy. 3. Endoscopies. [facility] [address] [place] [address] CONSULTATION Name: TERE ARREGUIN Room #: [address] [place] [address]..#: [id number] Admission: 05/19/20 Attend Phys: Guille Linda MD Discharge: Date of : 49 Report #: [id number] PHYSICAL EXAMINATION: GENERAL: The patient is alert, awake, oriented, lethargic. Blood pressure is 154/86. HEAD AND NECK: No jugular venous distention. CHEST: No crackles. CARDIOVASCULAR: No rub detected. ABDOMEN: Soft, nontender. LOWER EXTREMITIES: No edema. LABORATORY DATA: Sodium level from today is down to 114. I had thoroughly reviewed his sodium levels in the past. He has been chronically hyponatremic all the way back to 2005. He has normal kidney function. Creatinine is 0.8, hemoglobin is 11.9. Urine studies showed a sodium of 81. Urine osmolarity is pending. ASSESSMENT, IMPRESSION AND PLAN: 1. Severe combined hyponatremia due to hydrochlorothiazide, ADH secretion by his severe nausea and vomiting. Sodium had started to go down yet again. He was initiated on sodium chloride tablet 3 times a day. 2. Fluid restriction. 3. One time Lasix was given yesterday. 4. Serial sodium panels. 5. Avoid hydrochlorothiazide. 6. No indication for 3%. 7. We will continue to follow. By: 1 9 Socorro Carrington MD /nt
[~2020-05-19 11:40] MED LIST changes: +DIAZEPAM 5 MG5 M1 PO
[2020-05-19 12:39] LABS: ABSOLUTE NEUTROPHILS 4.8 thou/uL (1.4-8.2); BASOPHILS 0.3 % (0.0-2.0); EOSINOPHILS 0.1 % (0.0-3.0); HEMATOCRIT 34.7 % (42.0-52.0); HEMOGLOBIN 12.4 gm/dL (14.0-18.0); LYMPHOCYTES 9.5 % (24.0-44.0); MCH 30.5 pg (26.0-34.0); MCHC 35.7 g/dL (28.0-37.0); MCV 85.6 fL (80.0-100.0); MONOCYTES 9.4 % (1.0-8.0); PLATELET COUNT 205 thou/uL (150-400); POLYS 80.7 % (36.0-66.0); RBC 4.06 mil/uL (4.50-6.00); RDW 12.9 % (10.5-14.5)
[2020-05-19 12:49] LABS: ALBUMIN 3.9 g/dL (3.4-5.0); CALCIUM 8.7 mg/dL (8.5-10.1); POTASSIUM 3.4 mmol/L (3.5-5.1); TOTAL PROTEIN 6.8 g/dL (6.4-8.2)
[2020-05-19 13:40] LABS: URINE BILIRUBIN NEGATIVE (Negative); URINE BLOOD NEGATIVE (Negative); URINE CLARITY CLEAR; URINE COLOR YELLOW; URINE GLUCOSE-RANDOM* TRACE (Negative); URINE KETONES 1+ (Negative); URINE LEUKOCYTES-REFLEX NEGATIVE (Negative); URINE NITRITE-REFLEX NEGATIVE (Negative); URINE PROTEIN (DIPSTICK) NEGATIVE (Negative); URINE SPECIFIC GRAVITY 1.015 (1.005-1.035)
[2020-05-19 14:14] LABS: URINE CHLORIDE-RANDOM* 103 mmol/L; URINE SODIUM-RANDOM* 81 mmol/L
[2020-05-19] MEDS ORDERED: CARAFATE 1 GM TA1 GM PO (17:01)
--- NOTE | 2020-05-19 18:24 | NUR ---
PT TRANSFERED TO ICU FROM ED AT APPROX. 1710. PT RESTING COMFORTABLY IN BED, NS GTT INIATED, FOOD TRAY GIVEN. PT HAS LOW GRADE TEMP, 99.0, ADEQUATE UOP, NO BM, TOLERATING DIET. SPOKE WITH MULTIPLE FAMILY MEMBERS AND UPDATED THEM ON PTS STATUS AND VISITING HOURS/PROTOCALS. PT HAS NAUSEA, NO VOMITING. PT AND FAMILY HAVE BEEN UPDATED AND EDUCATED ON PT CONDITION AND POC. PT PROGRESSING TOWARDS POC.
[2020-05-19 19:30] LABS: CALCIUM 7.8 mg/dL (8.5-10.1); POTASSIUM 3.3 mmol/L (3.5-5.1)
[2020-05-20] VITALS (19 sets, daily range): BP systolic 110–170; BP diastolic 65–91
[2020-05-20 03:08] LABS: HEMATOCRIT 30.6 % (42.0-52.0); HEMOGLOBIN 11.3 gm/dL (14.0-18.0); MCH 31.1 pg (26.0-34.0); RBC 3.64 mil/uL (4.50-6.00); RDW 12.9 % (10.5-14.5); WBC 6.9 thou/uL (4.0-11.0)
[2020-05-20 03:17] LABS: CALCIUM 7.9 mg/dL (8.5-10.1); CREATININE 0.8 mg/dL (0.7-1.3); MAGNESIUM 1.2 mg/dL (1.8-2.4)
--- NOTE | 2020-05-20 07:24 | EKG ---
[address] [address] ELECTROCARDIOGRAM REPORT Name: TERE ARREGUIN Room #: 245-P [facility] IN M.R.#: [id number] Admission: 05/19/20 Attend Phys: Guille Linda MD Discharge: Date of : 48 Report #: [id number] [facility] ED Test Date: 2020-05-19 Test Time: 13:50:08 Pat Name: TERE ARREGUIN Department: Room: [facility] Gender: M Photo Cartographer: : 1950 Requested By: Gina Tomlinson Order Number: [id number] MD: Elijah Morales Measurements Intervals Yeso Rate: 80 P: IA: QRS: 16 QRSD: 119 T: 120 QT: 397 QTc: 458 Interpretive Statements Artifact Please repeat Electronically Signed On 05-20-2020 7:24:39 CDT by Elijah Morales [email or web address] <ELECTRONICALLY SIGNED> By: Elijah Morales MD, [facility] 05/20/20 0724 1350 1350 Elijah Morales MD, FACC /EPI
--- NOTE | 2020-05-20 10:23 | NUR ---
ALERT AND ORIENTED, VITALS STABLE. SIGNIFICANT TREMORS NOTED ON BUE, PATIENT STATES IT'S SIDE EFFECTS OF REGLAN THAT HE'S BEEN TAKING FOR A COUPLE OF YEARS AND HIS PCP IS AWARE OF THIS. TOLERATING DIET AND UP TO CHAIR WITH ASSISTANCE, PT AND OT WORKING WITH HIM. PATIENT'S DAUGHTER CALLED FOR UPDATE BUT DIDN'T HAVE PRIVACY CODE SO SHE WAS UPSET THAT SHE COULDN'T GET DETAILED INFO ON HIM. PATIENT'S CALLED AND HAD THE CODE AND WAS UPDATED AND STATED HE WOULD BE COMING IN TO SEE HIM.
[2020-05-20 11:48] LABS: CALCIUM 7.8 mg/dL (8.5-10.1); CREATININE 0.9 mg/dL (0.7-1.3); MAGNESIUM 1.1 mg/dL (1.8-2.4)
[2020-05-20 19:53] LABS: MAGNESIUM 1.2 mg/dL (1.8-2.4); POTASSIUM 3.8 mmol/L (3.5-5.1)
[2020-05-21] VITALS (21 sets, daily range): BP systolic 108–162; BP diastolic 58–94
[2020-05-21 03:15] LABS: HEMATOCRIT 32.5 % (42.0-52.0); HEMOGLOBIN 11.9 gm/dL (14.0-18.0); MCH 30.8 pg (26.0-34.0); MCHC 36.7 g/dL (28.0-37.0); RBC 3.87 mil/uL (4.50-6.00); RDW 12.7 % (10.5-14.5); WBC 5.9 thou/uL (4.0-11.0)
[2020-05-21 03:17] LABS: CALCIUM 7.7 mg/dL (8.5-10.1); CREATININE 0.8 mg/dL (0.7-1.3); POTASSIUM 3.5 mmol/L (3.5-5.1)
--- NOTE | 2020-05-21 09:00 | NUR ---
POTASSIUM PO REPLACED PER ELECTROLYTE PROTOCOL.
--- NOTE | 2020-05-21 16:10 | NUR ---
chart review. unable to visit with him rt resting. cm spoke with his ade. intro to cm and dcp. damon independent with adl's, no dme needs, no hh or rehab in past " lives with in split level home. no steps from garage into family room with bathroom then 6 steps up to next level and then 6 more up to bedrooms. he drives and manage own medication"/ ade. will cont following as needed for dc needs.
--- NOTE | 2020-05-21 17:00 | NUR ---
PRESENT TODAY. UPDATED ON ALL CARES AND LABS. QUESTIONS ANSWERED TO SATISFACTION.
[2020-05-22] VITALS (17 sets, daily range): BP systolic 109–166; BP diastolic 61–86
[2020-05-22 05:09] LABS: HEMATOCRIT 33.1 % (42.0-52.0); HEMOGLOBIN 11.8 gm/dL (14.0-18.0); MCH 30.9 pg (26.0-34.0); MCHC 35.8 g/dL (28.0-37.0); MCV 86.3 fL (80.0-100.0); RBC 3.83 mil/uL (4.50-6.00); RDW 12.9 % (10.5-14.5); WBC 4.6 thou/uL (4.0-11.0)
[2020-05-22 05:29] LABS: CREATININE 0.8 mg/dL (0.7-1.3); POTASSIUM 3.8 mmol/L (3.5-5.1)
--- NOTE | 2020-05-22 16:51 | NUR ---
spoke with in am, updated her on information from Dr. Carrington- renal . NA level improved to 124. pt will be on NA tablets 1gm after meals at least 3 times daily when he returns home. pt progressing, tremors resolving, now only mild intermittent hand tremors. pt transferring to [address] [place] [address] [address]. report given to Ruben, receiving RN.
--- NOTE | 2020-05-22 17:20 | NUR ---
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 pt stated that he will call his to notify her of room change.
[2020-05-22 18:42] LABS: CALCIUM 8.7 mg/dL (8.5-10.1); CREATININE 1.1 mg/dL (0.7-1.3); MAGNESIUM 1.6 mg/dL (1.8-2.4); POTASSIUM 4.4 mmol/L (3.5-5.1)
[2020-05-23 04:30] VITALS: BP 138/74
[2020-05-23 05:14] LABS: HEMATOCRIT 31.8 % (42.0-52.0); HEMOGLOBIN 11.5 gm/dL (14.0-18.0); MCH 31.2 pg (26.0-34.0); MCV 86.5 fL (80.0-100.0); RBC 3.68 mil/uL (4.50-6.00); RDW 12.9 % (10.5-14.5); WBC 4.5 thou/uL (4.0-11.0)
[2020-05-23 05:43] LABS: CALCIUM 8.5 mg/dL (8.5-10.1); CREATININE 0.9 mg/dL (0.7-1.3); POTASSIUM 4.2 mmol/L (3.5-5.1)
[2020-05-23 07:41] VITALS: BP 170/84
[2020-05-23 08:21] VITALS: BP 151/87
[2020-05-23 10:46] LABS: ALBUMIN 3.1 g/dL (3.4-5.0); DIRECT BILIRUBIN 0.1 mg/dL (<0.1-0.2); TOTAL BILIRUBIN 0.6 mg/dL (0.2-1.0); TOTAL PROTEIN 6.1 g/dL (6.4-8.2)
[2020-05-23 11:32] VITALS: BP 140/87
[2020-05-23] MEDS ORDERED: ERYTHROMYCIN250 M1 PO (13:15)
[2020-05-23] MEDS ORDERED: COZAAR100 MG PO (13:16)
[2020-05-23] MEDS ORDERED: SODIUM CHLORIDE1 GM PO (13:16)
[2020-05-23 14:01] VITALS: BP 140/87
[2020-05-23 15:27] VITALS: BP 160/92
--- NOTE | 2020-05-23 18:06 | NUR ---
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
== END 2020-05-23 17:05 | disposition home or self-care (01) | DRG 74 ==
LOC: ER 11:40 → EROBS 14:13 → ICU 14:13 → EROBS 14:54 → ICU 16:43 → 3W 05-22 17:27
PROVIDERS: Hospitalist; Nurse Practitioner; Nurse Practitioner Family; ADMIT Internal Medicine; ATTEND Internal Medicine
DX: E11.43 Type 2 diabetes mellitus with diabetic autonomic (poly)neuropathy (principal); E87.1 Hypo-osmolality and hyponatremia; G25.2 Other specified forms of tremor; K31.84 Gastroparesis; I10 Essential (primary) hypertension; E78.5 Hyperlipidemia, unspecified; K59.00 Constipation, unspecified; T50.2X5A Adverse effect of carbonic-anhydrase inhibitors, benzothiadiazides and other diuretics, initial encounter; I25.10 Atherosclerotic heart disease of native coronary artery without angina pectoris; E87.6 Hypokalemia; K21.9 Gastro-esophageal reflux disease without esophagitis; K22.70 Barrett's esophagus without dysplasia; G24.9 Dystonia, unspecified; Z88.8 Allergy status to other drugs, medicaments and biological substances; Y92.89 Other specified places as the place of occurrence of the external cause; Z80.0 Family history of malignant neoplasm of digestive organs
CPT/HCPCS: 10078; 10879

== ENCOUNTER → 2020-07-22 | Outpatient (CLI) | payer OTHER ==
[~2020-07-22] VITALS: Ht 177.8 cm; Wt 74.3 kg
[~2020-07-22] MED LIST changes: +CARAFATE 1 GM TA1 GM PO; +COZAAR100 MG PO; +ERYTHROMYCIN250 M1 PO; +SODIUM CHLORIDE1 GM PO
[2020-07-22 09:45] VITALS: BP 144/81
--- NOTE | 2020-07-22 09:55 | NUR ---
Pain Clinic Assessment: 1. History of Osteoarthritis: LOW BACK HANDS History of Rheumatoid Arthritis: NO 2. Height: 5 ft. 10 in. 177.8 cm. Weight: 163.8 lb. oz. 74.299 kg. Patient's BMI: 23.5 3. Vital Signs: BP: 144/81 Pulse: 64 Resp: 14 Temp: 02 Sat: 98 ECG Mon: 4. Pain Intensity: 6 5. Fall Risk: Dizziness: Y Needs help standing or walking: N Fallen in the last 3 months: N Fall risk comments: 6. Patient on Blood Thinner: None 7. History of Hypertension: Y 8. Opioid Therapy greater than 6 weeks: N Opiate Contract Signed: 9. Risk Assessment Tool Provided: LOW-0 10. Functional Assessment Tool: 49/70 11. Recreational Drug Use: Never Drug Type: Tobacco Use: Never Smoker Tobacco Type: Amount or Packs/day: How Many Years: Alcohol Use: No Frequency: Quant:
== END | disposition home or self-care (01) ==
LOC: PAIN 07:07
PROVIDERS: ATTEND Anesthesiology Pain Medicine
DX: M54.16 Radiculopathy, lumbar region (principal); M43.16 Spondylolisthesis, lumbar region; G89.29 Other chronic pain; I10 Essential (primary) hypertension; E11.9 Type 2 diabetes mellitus without complications; M19.90 Unspecified osteoarthritis, unspecified site; Z98.890 Other specified postprocedural states; Z79.899 Other long term (current) drug therapy; Z88.8 Allergy status to other drugs, medicaments and biological substances; Z86.73 Personal history of transient ischemic attack (TIA), and cerebral infarction without residual deficits

== ENCOUNTER → 2020-10-03 | Outpatient (CLI) | payer OTHER | LOC: SJCVCIMAG 08:58 | PROVIDERS: ATTEND Internal Medicine Cardiovascular Disease | DX: I65.23 Occlusion and stenosis of bilateral carotid arteries (principal); I25.10 Atherosclerotic heart disease of native coronary artery without angina pectoris; I10 Essential (primary) hypertension; E78.00 Pure hypercholesterolemia, unspecified; E11.9 Type 2 diabetes mellitus without complications; K31.84 Gastroparesis; E78.5 Hyperlipidemia, unspecified; Z95.5 Presence of coronary angioplasty implant and graft; Z88.8 Allergy status to other drugs, medicaments and biological substances; Z79.82 Long term (current) use of aspirin; Z79.4 Long term (current) use of insulin; Z79.899 Other long term (current) drug therapy; Z82.49 Family history of ischemic heart disease and other diseases of the circulatory system ==

== ENCOUNTER → 2020-10-17 | Outpatient (CLI) | payer OTHER ==
[~2020-10-17] VITALS: Ht 177.8 cm; Wt 78.6 kg
[2020-10-17 09:03] VITALS: BP 160/71
== END ==
LOC: PAIN 08:53
PROVIDERS: ATTEND Clinical Nurse Specialist Adult Health
DX: G89.29 Other chronic pain (principal); M43.16 Spondylolisthesis, lumbar region; M54.16 Radiculopathy, lumbar region

== ENCOUNTER → 2020-11-12 | Outpatient (CLI) | payer OTHER | LOC: SJCVCIMAG 07:52 | PROVIDERS: ATTEND Internal Medicine Cardiovascular Disease | DX: I34.0 Nonrheumatic mitral (valve) insufficiency (principal); I25.10 Atherosclerotic heart disease of native coronary artery without angina pectoris; E78.5 Hyperlipidemia, unspecified; I10 Essential (primary) hypertension; Z98.61 Coronary angioplasty status ==

== ENCOUNTER → 2020-12-05 | Outpatient (CLI) | payer OTHER ==
[~2020-12-05] VITALS: Ht 177.8 cm; Wt 80.4 kg
[~2020-12-05] MED LIST changes: +ERYTHROMYCIN250 M2 PO
[2020-12-05 09:27] VITALS: BP 147/69
--- NOTE | 2020-12-05 09:36 | NUR ---
Pain Clinic Assessment: 1. History of Osteoarthritis: LOW BACK HANDS History of Rheumatoid Arthritis: NO 2. Height: 5 ft. 10 in. 177.8 cm. Weight: 177.2 lb. oz. 80.377 kg. Patient's BMI: 25.4 3. Vital Signs: BP: 147/69 Pulse: 60 Resp: 16 Temp: 02 Sat: 99 ECG Mon: 4. Pain Intensity: 6 5. Fall Risk: Dizziness: N Needs help standing or walking: N Fallen in the last 3 months: Y Fall risk comments: 6. Patient on Blood Thinner: None 7. History of Hypertension: Y 8. Opioid Therapy greater than 6 weeks: N Opiate Contract Signed: 9. Risk Assessment Tool Provided: LOW-0 10. Functional Assessment Tool: 49/70 11. Recreational Drug Use: Never Drug Type: Tobacco Use: Never Smoker Tobacco Type: Amount or Packs/day: How Many Years: Alcohol Use: No Frequency: Quant:
== END ==
LOC: PAIN 06:56
PROVIDERS: ATTEND Anesthesiology Pain Medicine
DX: M47.26 Other spondylosis with radiculopathy, lumbar region (principal); Z88.8 Allergy status to other drugs, medicaments and biological substances

== ENCOUNTER → 2020-12-30 | Outpatient (CLI) | payer OTHER ==
[~2020-12-30] VITALS: Ht 177.8 cm; Wt 81.2 kg
[~2020-12-30] MED LIST changes: +LOSARTAN-HCTZ1 EAC3 PO
[2020-12-30 09:37] VITALS: BP 154/88
--- NOTE | 2020-12-30 09:46 | NUR ---
Pain Clinic Assessment: 1. History of Osteoarthritis: LOW BACK HANDS History of Rheumatoid Arthritis: NO 2. Height: 5 ft. 10 in. 177.8 cm. Weight: 179.0 lb. oz. 81.194 kg. Patient's BMI: 25.7 3. Vital Signs: BP: 154/88 Pulse: 64 Resp: 14 Temp: 02 Sat: 100 ECG Mon: 4. Pain Intensity: 8 5. Fall Risk: Dizziness: N Needs help standing or walking: N Fallen in the last 3 months: N Fall risk comments: 6. Patient on Blood Thinner: None 7. History of Hypertension: Y 8. Opioid Therapy greater than 6 weeks: N Opiate Contract Signed: 9. Risk Assessment Tool Provided: LOW-0 10. Functional Assessment Tool: 49/70 11. Recreational Drug Use: Never Drug Type: Tobacco Use: Never Smoker Tobacco Type: Amount or Packs/day: How Many Years: Alcohol Use: No Frequency: Quant:
== END | disposition home or self-care (01) ==
LOC: PAIN 09:28
PROVIDERS: ATTEND Anesthesiology Pain Medicine
DX: M54.16 Radiculopathy, lumbar region (principal); G89.29 Other chronic pain; M19.90 Unspecified osteoarthritis, unspecified site; E11.9 Type 2 diabetes mellitus without complications; Z98.890 Other specified postprocedural states; Z79.899 Other long term (current) drug therapy; Z86.73 Personal history of transient ischemic attack (TIA), and cerebral infarction without residual deficits; Z88.8 Allergy status to other drugs, medicaments and biological substances

== ENCOUNTER → 2021-04-07 | Outpatient (CLI) | payer OTHER ==
[~2021-04-07] VITALS: Ht 177.8 cm; Wt 81.9 kg
[2021-04-07 09:16] VITALS: BP 144/88
--- NOTE | 2021-04-07 09:35 | NUR ---
Pain Clinic Assessment: 1. History of Osteoarthritis: LOW BACK HANDS History of Rheumatoid Arthritis: NO 2. Height: 5 ft. 10 in. 177.8 cm. Weight: 180.6 lb. oz. 81.920 kg. Patient's BMI: 25.9 3. Vital Signs: BP: 144/88 Pulse: 72 Resp: 14 Temp: 02 Sat: 100 ECG Mon: 4. Pain Intensity: 5 TO 7 5. Fall Risk: Dizziness: N Needs help standing or walking: N Fallen in the last 3 months: N Fall risk comments: 6. Patient on Blood Thinner: None 7. History of Hypertension: Y 8. Opioid Therapy greater than 6 weeks: N Opiate Contract Signed: 9. Risk Assessment Tool Provided: LOW-0 10. Functional Assessment Tool: 49/70 11. Recreational Drug Use: Never Drug Type: Tobacco Use: Never Smoker Tobacco Type: Amount or Packs/day: How Many Years: Alcohol Use: No Frequency: Quant:
== END ==
LOC: PAIN 06:51
PROVIDERS: ATTEND Anesthesiology Pain Medicine
DX: G89.29 Other chronic pain (principal); M54.50 Low back pain, unspecified; M54.16 Radiculopathy, lumbar region; Z79.899 Other long term (current) drug therapy; Z88.8 Allergy status to other drugs, medicaments and biological substances